=== PATIENT | female | born 1990 | race Caucasian/White ===

== ENCOUNTER 2016-07-05 19:46 | Emergency (ER) | payer OTHER ==
[~2016-07-05] VITALS: Ht 152.4 cm; Wt 56.0 kg
[2016-07-05 20:00] VITALS: Ht 152.4 cm; Wt 56.0 kg
[2016-07-05] MEDS ORDERED: LIDOCAINE 2% (MDV) 20 ML INJ INJ ONE (22:00)
[2016-07-05] MEDS ORDERED: HYDROCODONE/APAP (5/325) TAB PO ONE (22:00)
[2016-07-05] MEDS ORDERED: CEFTRIAXONE 1 GM INJ IM ONE (22:00)
[2016-07-05] MEDS ORDERED: AMOX1TAB10 PO (22:01)
[2016-07-05] MEDS ORDERED: HYDR-906 PO (22:02)
[2016-07-05] MEDS ORDERED: IBUP-1542 PO (22:02)
--- NOTE | 2016-07-05 22:08 | ERD ---
ER Documentation Chief Complaint Date/Time DATE: 07/05/16 TIME: 22:05 Chief Complaint swelling right jaw/right lower toothache since yesterday HPI This is a 25-year-old female that presents to the ER with swelling to the right side of her jaw. Patient developed right lower molar toothache yesterday and today woke up with swelling and pain. Patient denies any difficulty in swallowing. She does not have any fevers or chills. Patient has been taking Excedrin for the pain. Patient is currently breast-feeding. ROS 12 point review of systems was done, all negative except per HPI.. Medications Home Meds Active Scripts Ibuprofen* (Motrin*) 600 Mg Tab, 600 MG PO Q6, #30 TAB Prov:JIMMIE WHITE 07/05/16 Hydrocodone/Acetaminophen ([place] 5-325 Tablet) 1 Each Tablet, 1 TAB PO Q6H Y for PAIN, #10 TAB Prov:JIMMIE WHITE 07/05/16 Amoxicillin/Potassium Clav (Amox-Clav 875-125 mg Tablet) 875-125 mg Tab, 1 TAB PO BID for 10 Days, #20 TAB Prov:JIMMIE WHITE C 07/05/16 Allergies Allergies: Coded Allergies: No Known Drug Allergies (Verified Allergy, Unknown, 07/05/16) PMhx/Soc Medical and Surgical Hx: pt denies Medical Hx, pt denies Surgical Hx Hx Alcohol Use: No Hx Substance Use: No Hx Tobacco Use: No Smoking Status: Never smoker Physical Exam Vitals Vital Signs Date Time Temp Pulse Resp B/P Pulse Ox O2 Delivery O2 Flow Rate FiO2 07/05/16 20:00 97.9 111 20 123/64 99 Physical Exam GENERAL: The patient is well developed and appropriate for usual state of health , in no apparent distress. HEENT: Atraumatic. There is a dental abscess to the right lower jaw. There is no fullness or swelling of the floor of the mouth. No difficulty in swallowing no erythematous tonsils no uvular deviation no kissing tonsils. CHEST: Clear to auscultation bilaterally. There are no rales, wheezes or rhonchi. HEART: Regular rate and rhythm. No murmurs, clicks, rubs or gallops. NEURO: Alert and oriented. Results 24 hrs Current Medications Medications (Trade) Dose Ordered Sig/Francisco Route PRN Reason Start Time Stop Time Status Last Admin Dose Admin Ceftriaxone Sodium (Rocephin) 1 gm ONCE ONCE IM 07/05/16 22:00 07/05/16 22:01 DC Lidocaine (Xylocaine 2% (Mdv) 20 ml) 20 ml ONCE ONCE INJ 07/05/16 22:00 07/05/16 22:01 DC Acetaminophen/ Hydrocodone Bitart ([place] (5/325)) 1 tab ONCE ONCE PO 07/05/16 22:00 07/05/16 22:01 DC Procedures/MDM This is a 25-year-old female presents to the ER with swelling to her right jaw. Patient did have a dental abscess secondary to a molar dental caries. At this time suspicion for Ricky's angina is low. There is no evidence of swelling to the floor of the mouth. Patient is afebrile and well-appearing. She does not have any difficulty in breathing. Patient was given a shot of Rocephin here in the ER without any complications. She will be sent home with Augmentin. She is to follow-up with her primary care doctor within 1-2 days return to ER sooner if symptoms worsen. My medical decision making was shared with her relative he understands and agrees with plan. Since relative was translating throughout the patient encounter. Departure Diagnosis: Primary Impression: Dental abscess Condition: Stable Patient Instructions: Dental Abscess Additional Instructions: Call your primary care doctor TOMORROW for an appointment during the next 1-2 days.See the doctor sooner or return here if your condition worsens before your appointment time. JIMMIE WHITE Jul 05, 2016 22:08
[2016-07-05 22:38] VITALS: BP 108/64; PULSE 93; RESP 16; TEMP 98.4
== END 2016-07-05 22:40 | disposition home or self-care (01) ==
LOC: FTE 19:46
DX: K04.7 Periapical abscess without sinus (principal)
CPT/HCPCS: 96372; J0696; Z7502; Z7610